=== PATIENT | male | born 1950 | race Caucasian/White ===

== ENCOUNTER 2017-05-23 09:00 | Outpatient (RCR) | payer MEDICARE, OTHER | END 2017-05-26 | LOC: OT 09:00 | PROVIDERS: ATTEND Physical Medicine & Rehabilitation | DX: I69.852 Hemiplegia and hemiparesis following other cerebrovascular disease affecting left dominant side (principal); R53.1 Weakness; R27.8 Other lack of coordination; M62.81 Muscle weakness (generalized); R53.81 Other malaise; R26.2 Difficulty in walking, not elsewhere classified | CPT/HCPCS: 97110 ×20; 97139 ×2; 97530 ×4; G8978 ×2; G8979 ×2; G8988; G8989 ==

== ENCOUNTER → 2017-09-25 | Outpatient (CLI) | payer MEDICARE, OTHER ==
--- NOTE | 2017-09-25 15:13 | Diagnostic Imaging Report ---
PROCEDURE: CT ABDOMEN AND PELVIS WITHOUT CONTRAST COMPARISON:None. INDICATIONS:LEFT FLANK PAIN TECHNIQUE: Axial CT images through the abdomen and pelvis were obtained without intravenous contrast. Coronal and sagittal reformations were created. DLP: 778.75 mGY-cm2 FINDINGS: Right kidney: Several intrarenal calculi measure up to 8 mm. Low attenuation lesion in the upper pole measures 2.5 cm. No collecting system dilatation. There is mild perinephric inflammation suggestive of lymphatic congestion. Left kidney: There are pixel size calculi in the upper and lower poles. No collecting system dilatation. Mild perinephric inflammation suggestive of lymphatic congestion. No renal edema. No intracortical mass.. Bladder/ureters: The ureters are nondilated. No periureteric inflammation. Subtle linear calcification in the distal right ureter just before the UVJ is suggestive of either calculus or apposed mucosa (image 149). The left ureter is normal in diameter throughout its course without evidence of calculus. No bladder wall thickening or perivesicular inflammation. No intrarenal calculi. Liver: Decrease attenuation. No evidence of mass Spleen: Normal attenuation without mass or ductal dilatation. Biliary: The gallbladder is present and normal in appearance. No biliary ductal dilatation. Pancreas: Mild fatty atrophy without mass or ductal dilatation. A tiny parenchymal calcification is present in the body. Adrenal Glands: Lipoma in the medial limb of the right adrenal gland measures 2.1 x 1.2 cm. There is diffuse thickening of the left adrenal gland without defined mass. Vasculature: Aorta is normal in diameter with these calcifications. No periaortic inflammation. IVC is normal in diameter. GI: The stomach and small bowel normal diameter wall thickness. Diverticulosis coli is present without associated inflammation. Mild to moderate burden of stool throughout the large bowel. The appendix is normal. Peritoneum/Retroperitoneum: No free fluid or fluid collection. A fat attenuating nodule in the left lower quadrant measures 1.7 x 1.2 cm (axial image 130). No surrounding inflammation. No lymphadenopathy. Reproductive organs: There are calcifications in the prostate gland. Seminal vesicles are normal in morphology. There is a calcification in the right seminal vesicle measuring 4 mm, linear in configuration. MSK: Levoscoliosis of the lumbar spine with superimposed degenerative changes. No compression fractures. No destructive lesions. No bowel containing hernia. Fat containing umbilical hernia aperture of 9 mm. Lung bases: Several small air cysts in the left lower lobe. This could be a result of emphysema. No infiltrates. Visualized portion of the mediastinum shows coronary artery calcifications. CONCLUSION: 1. Tiny left intrarenal calculi without evidence of obstructive uropathy or recent passage of ureteral calculus. 2. Multiple right intrarenal calculi without obstructive uropathy. There may be a very tiny calculus or apposed mucosa in the distal right ureter. Please correlate with urinalysis for hematuria. 3. Minimal burden of diverticulosis coli. No bowel obstruction or inflammation. Normal appendix. 4. Cyst in the right kidney as described above. 5. Right adrenal adenoma. Left adrenal hyperplasia. 6. Left lower quadrant peritoneal fat attenuating nodule could represent an epiploic appendage or small peritoneal infarct. 7. Hepatic steatosis. Dictated by: Christiano House M.D. on 09/25/2017 at 15:14 Electronically approved by: Christiano House M.D. on 09/25/2017 at 15:14
== END ==
LOC: CT 14:28
PROVIDERS: ATTEND Family Medicine
DX: R31.9 Hematuria, unspecified (principal)
CPT/HCPCS: 74176